=== PATIENT | female | born 1955 | race Caucasian/White ===

== ENCOUNTER → 2024-01-22 16:44 | Outpatient (REF) | payer OTHER, SELFPAY | LOC: WDC 16:44 | PROVIDERS: ATTENDING PHYSICIAN Family Medicine | DX: Z12.31 Encounter for screening mammogram for malignant neoplasm of breast (principal); Z12.39 Encounter for other screening for malignant neoplasm of breast | CPT/HCPCS: 77063; 77067 ==

== ENCOUNTER → 2025-01-25 15:17 | Outpatient (REF) | payer OTHER, SELFPAY | LOC: WDC 15:17 | PROVIDERS: ATTENDING PHYSICIAN Family Medicine | DX: Z12.31 Encounter for screening mammogram for malignant neoplasm of breast (principal) | CPT/HCPCS: 77063; 77067 ==

== ENCOUNTER 2025-05-20 17:19 | Emergency (ER) | payer OTHER, SELFPAY ==
[2025-05-20] VITALS (9 sets, daily range): BP systolic 135–188; BP diastolic 56–97; BMI 27.0
--- NOTE | 2025-05-20 19:23 | ED.GENMED ---
History of Present Illness
General
Chief Complaint: Dizziness
Source: patient and spouse
Time Seen by Provider: 05/20/25 18:59
History of Present Illness
History of Present Illness:
This patient is a 69-year-old female presents emergency department with report of just not feeling 'right' yesterday. She went to see her doctor had a UA performed which was preliminarily possibly consistent with UTI and she was started on
Macrobid. She has taken a total of 2 doses thus far. She does not believe she is ever taken this antibiotic in the past. Today, she notes she still feels just not right associated with slight nausea that she developed after lunch. She is hungry
now. She also notes episodes of feeling lightheaded, not described as a sense of spinning or movement. Then, close to her time of presentation here, she had a short-lived episode of bilateral facial numbness. This was not associated with change
in speech, change in vision, facial droop, focal weakness, headache, neck pain, or other complaints. Patient still feels lightheaded and just not right but cannot be more specific. She denies any further numbness, tingling. She denies focal
weakness, change in vision, headache, neck pain, chest pain, dyspnea, fever, chills, vomiting, vaginal bleeding or discharge. She denies urinary frequency hematuria, dysuria. She has chronic lower abdominal discomfort which is unchanged.
Past History
Past History
ED Past Medical History: GERD, NIDDM and Other (Hepatitis C)
ED Past Surgical History: Gynecological
Social History
Tobacco: Former smoker
Alcohol: Daily
Drug: None
Personal:
Living: with family
Employment: Retired
Phy Exam
Physical Exam
Physical Exam:
GENERAL: Alert , in no apparent distress
EYE: pupils equal and reactive
NECK: Supple, no significant adenopathy.
ENT: o/p clr, mmm.
CARDIAC: Regular rate and rhythm .
LUNGS: Clear breath sounds bilaterally, no acute respiratory distress, no wheezes/rales/rhonchi
ABDOMEN: Soft, without focal tenderness, no r/g, no cvat
NEUROLOGICAL: Alert and oriented, no focal neuro deficits, motor 5 out of 5, sensory intact, cranial nerves II through XII intact, [id number] normal
SKIN: Warm and dry, skin intact.
MUSCULOSKELETAL: No edema, well perfused.
PSYCH: Normal and appropriate interaction.
Course
Orders/Labs/Results
Orders:
Orders
05/20/25 17:23
EKG [Electrocardiogram (*1)] Urgent
Reason for Study: Vertigo / Dizzy
EKG- Treatment ONCE
05/20/25 19:22
0.9% Sodium Chloride 1000 ml [Nss] 1,000 ml IV BOLUS
05/20/25 19:35
Complete Blood Count/No Diff Urgent
Comprehensive Metabolic Panel Urgent
Troponin I Urgent
Urinalysis Reflex To Culture Urgent
Date Specimen was Collected: 05/20/25
Time Specimen was Collected: 19:27
Urine Microscopic Reflex Cult Urgent
Urine Culture Urgent
TRACIE Source: U
Specimen Description:
Date Specimen was Collected: 05/20/25
Time Specimen was Collected: 19:27
Abnormal Lab Results
05/20/25
19:35
Hgb 11.6 L g/dL
(12.0-16.0)
Hct 36.4 L %
(37.0-47.0)
MCV 69.5 L fL
(81.0-99.0)
MCH 22.1 L pg
(27.0-31.0)
MCHC 31.9 L g/dL
(33.0-37.0)
RDW 16.2 H %
(11.5-14.5)
Glucose 226 H mg/dl
(70-99)
Leukocyte Esterase Rfl 1+ A
(Negative)
Urine WBC (Reflex) 11-15 A /HPF
(0-5)
Urine Bacteria (Reflex) Many A
(Negative)
Urine Glucose 1+ A
(Negative)
05/20/25 19:35
05/20/25 19:35
Vital Signs
Initial and Last Documented VS:
Initial Vital Signs
Temp Pulse Resp Pulse Ox
98.7 F 94 18 99
05/20/25 17:21 05/20/25 17:21 05/20/25 17:21 05/20/25 17:21
Last Documented Vital Signs
Temp Pulse Resp BP Pulse Ox
98.2 F 70 17 135/65 94
05/20/25 18:48 05/20/25 20:45 05/20/25 20:45 05/20/25 20:30 05/20/25 20:45
*Pulse Oximetry
SaO2: 99
Oxygen Mode of Delivery: Room air
*Critical Care Note
Total Time (30-74mins, 75-104mins- exclusive of procedures): Not Applicable
Update Note
Update Note:
Patient presents to the Emergency Department with __lightheadedness, facial numbness, just not feeling right
Number and Complexity of Problems Addressed at the Encounter
� Chronic conditions affecting care:
� Acute Exacerbation and/or Progression of Chronic Illness:
� Differential Diagnosis includes: But not limited to electrolyte disorder, TIA, UTI, medication reaction, etc. etc.
Amount and/or Complexity of Data to be Reviewed and Analyzed
� I performed an independent evaluation of and my interpretation is:
EKG: Read by me, normal sinus rhythm, normal rate, normal axis, no acute ischemia
CT:
Xrays:
Laboratory Studies: Generally unremarkable discussed anemia and mild hyperglycemia with patient given copy of records
Other:
� Review of other/old records reveals: Reviewed discharge summary from most recent hospitalization 2016 patient diagnosed with E. coli bacteremia and UTI
� Clinical information was obtained by an independent historian: who is bedside
� Prescriptions/Medications Considered but not given:
� Further testing considered but not performed:
Risk of Complications and/or Morbidity or Mortality of Patient Management
� Social determinants of health affecting care:
� Discussion with other providers (PCP, Hospitalists, Consultants, etc):
� Escalation of care including admission/observation vs risk of discharge considered: 7:30 PM highly doubt patient symptoms consistent with acute neurological event such as TIA/CVA/bleed, etc. given completely normal neurological
exam here, bilateral short-lived vague facial numbness without associated symptoms, etc.
9:01 PM patient well-appearing, blood pressure now near normal, no complaints, neurological exam remains completely normal. Discussed with patient and plan of care� Given UA is equivocal, symptoms may or may not have been related to the new
antibiotic that she is taking, what we had shared decision making regarding whether to continue her Macrobid. They have decided to discontinue the Macrobid until the culture results are back which are expected tomorrow. She will follow-up with her
primary care doctor tomorrow morning. I closely described reasons that she should return to the emergency department immediately.
ED Attending Note
-
Portions of this chart may have been created with voice recognition software.� Occasional wrong word or��sound alike� substitutions may have occurred due to the inherent limitations of voice recognition software.
Discharge Plan
Departure
Patient Disposition: Home (Routine Discharge)
Date of Disposition: 05/20/25
Time of Disposition: 20:59
Patient with high blood pressure during this ER visit?: Yes
Condition: Good
Discharge Problem:
Dizziness
Instructions: Dizziness, BLOOD PRESSURE
Prescriptions:
No Action
glimepiride 1 MG tablet
1 mg PO BID
omeprazole 20 MG capsule,delayed release(DR/EC)
20 mg PO DAILY
metformin 500 MG tablet extended release 24 hr
2,000 mg PO DAILY
alprazolam 0.25 MG tablet
0.25 tab PO HSPRN PRN (Reason: sleep/anxiety)
lisinopril 10 mg Tablet
10 mg PO DAILY
rosuvastatin 10 mg Tablet
10 mg PO DAILY
Januvia 100 mg Tablet
100 mg PO DAILY
Referrals:
Julian Recinos MD [Family Provider, Family Practice] - Tomorrow
Activity Restrictions/Additional Instructions:
IF YOU DEVELOP NUMBNESS, TINGLING, WEAKNESS, CLUMSINESS, CHANGE IN VOICE, CHANGE IN VISION, DIFFICULTY WALKING, NAUSEA, VOMITING, CHEST PAIN, SHORTNESS OF BREATH, OR OTHER WORRISOME SIGNS, PLEASE RETURN TO THE ER IMMEDIATELY!
Interventions
Interventions:
*Risk Screen - Suicide Last Done: 05/20/25 18:44
*General Assessment Last Done: 05/20/25 18:44
*Neglect/Abuse Screening Last Done: 05/20/25 18:44
*ED- Fall Risk Assessment Last Done: 05/20/25 18:44
*ED COVID-19 Vaccine History Last Done: 05/20/25 18:44
ED- Neurological Assessment Last Done: 05/20/25 18:44
ED Swallowing Screen Last Done: 05/20/25 18:44
Discharge Date and Time
Print Language: MACEDONIAN
[2025-05-20] MEDS: NSS 1000 IV (19:32)
[2025-05-20 19:49] LABS: Hematocrit 36.4 % (37.0-47.0); Hemoglobin 11.6 g/dL (12.0-16.0); Mean Corp Hgb Conc. 31.9 g/dL (33.0-37.0); Mean Corpuscular Hgb 22.1 pg (27.0-31.0); Mean Corpuscular Volume 69.5 fL (81.0-99.0); Mean Platelet Volume 9.5 fL (7.4-10.4); Platelet Count 260 10^3/uL (130-400); Red Blood Cell Count 5.24 10^6/uL (4.20-5.40); Red Cell Dist. Width 16.2 % (11.5-14.5); White Blood Cell Count 5.5 10^3/uL (4.8-10.8)
[2025-05-20 19:52] LABS: Urine Albumin Negative (Neg - Trace); Urine Bilirubin Negative (Negative); Urine Character Clear (Clear); Urine Color Yellow; Urine Glucose 1+ (Negative); Urine Ketone Negative (Negative); Urine Leukocyte 1+ (Negative); Urine Nitrite Negative (Negative); Urine Occult Blood Negative (Negative); Urine Specific Gravity 1.015 (<1.030); Urine Urobilinogen Negative (Neg - 1+)
[2025-05-20 20:02] LABS: ALT (SGPT) 24 U/L (0-35); AST (SGOT) 20 U/L (14-36); Albumin 4.9 g/dl (3.5-5.0); Alkaline Phosphatase 51 U/L (38-126); Blood Urea Nitrogen 14 mg/dl (7-17); Carbon Dioxide 25 mmol/L (22-30); Chloride 103 mmol/L (98-107); Estimated Creatinine Clearance 67 ml/min; Glucose 226 mg/dl (70-99); Potassium 4.6 mmol/L (3.5-5.1); Sodium 138 mmol/L (135-145); Total Bilirubin 0.4 mg/dl (0.2-1.3); Total Protein 7.9 g/dl (6.3-8.2); eGFR > 60.00
[2025-05-20 20:04] LABS: Urine Red Blood Cell 0-2 /HPF (0-2)
[2025-05-20 20:05] LABS: Urine Bacteria Many (Negative)
[2025-05-20 20:13] LABS: Troponin I < 0.012 ng/ml
--- NOTE | 2025-05-20 21:09 | ED.GENMED ---
History of Present Illness
General
Chief Complaint: Dizziness
Time Seen by Provider: 05/20/25 18:59
Past History
Past History
ED Past Medical History: GERD, NIDDM and Other (Hepatitis C)
ED Past Surgical History: Gynecological
Social History
Tobacco: Former smoker
Alcohol: Daily
Drug: None
Personal:
Living: with family
Employment: Retired
Course
Orders/Labs/Results
Orders:
Orders
05/20/25 17:23
EKG [Electrocardiogram (*1)] Urgent
Reason for Study: Vertigo / Dizzy
EKG- Treatment ONCE
05/20/25 19:22
0.9% Sodium Chloride 1000 ml [Nss] 1,000 ml IV BOLUS
05/20/25 19:35
Complete Blood Count/No Diff Urgent
Comprehensive Metabolic Panel Urgent
Troponin I Urgent
Urinalysis Reflex To Culture Urgent
Date Specimen was Collected: 05/20/25
Time Specimen was Collected: 19:27
Urine Microscopic Reflex Cult Urgent
Urine Culture Urgent
TRACIE Source: U
Specimen Description:
Date Specimen was Collected: 05/20/25
Time Specimen was Collected: 19:27
Abnormal Lab Results
05/20/25
19:35
Hgb 11.6 L g/dL
(12.0-16.0)
Hct 36.4 L %
(37.0-47.0)
MCV 69.5 L fL
(81.0-99.0)
MCH 22.1 L pg
(27.0-31.0)
MCHC 31.9 L g/dL
(33.0-37.0)
RDW 16.2 H %
(11.5-14.5)
Glucose 226 H mg/dl
(70-99)
Leukocyte Esterase Rfl 1+ A
(Negative)
Urine WBC (Reflex) 11-15 A /HPF
(0-5)
Urine Bacteria (Reflex) Many A
(Negative)
Urine Glucose 1+ A
(Negative)
05/20/25 19:35
05/20/25 19:35
Vital Signs
Initial and Last Documented VS:
Initial Vital Signs
Temp Pulse Resp Pulse Ox
98.7 F 94 18 99
05/20/25 17:21 05/20/25 17:21 05/20/25 17:21 05/20/25 17:21
Last Documented Vital Signs
Temp Pulse Resp BP Pulse Ox
98.2 F 69 16 135/83 99
05/20/25 18:48 05/20/25 21:06 05/20/25 21:06 05/20/25 21:06 05/20/25 21:06
*Pulse Oximetry
SaO2: 99
Oxygen Mode of Delivery: Room air
ED Attending Note
-
Portions of this chart may have been created with voice recognition software.� Occasional wrong word or��sound alike� substitutions may have occurred due to the inherent limitations of voice recognition software.
Discharge Plan
Departure
Patient Disposition: Home (Routine Discharge)
Date of Disposition: 05/20/25
Time of Disposition: 20:59
Patient with high blood pressure during this ER visit?: Yes
Condition: Good
Discharge Problem:
Dizziness
Instructions: Dizziness, BLOOD PRESSURE
Prescriptions:
No Action
glimepiride 1 MG tablet
1 mg PO BID
omeprazole 20 MG capsule,delayed release(DR/EC)
20 mg PO DAILY
metformin 500 MG tablet extended release 24 hr
2,000 mg PO DAILY
alprazolam 0.25 MG tablet
0.25 tab PO HSPRN PRN (Reason: sleep/anxiety)
lisinopril 10 mg Tablet
10 mg PO DAILY
rosuvastatin 10 mg Tablet
10 mg PO DAILY
Januvia 100 mg Tablet
100 mg PO DAILY
Referrals:
Julian Recinos MD [Family Provider, [facility]] - Tomorrow
Activity Restrictions/Additional Instructions:
IF YOU DEVELOP NUMBNESS, TINGLING, WEAKNESS, CLUMSINESS, CHANGE IN VOICE, CHANGE IN VISION, DIFFICULTY WALKING, NAUSEA, VOMITING, CHEST PAIN, SHORTNESS OF BREATH, OR OTHER WORRISOME SIGNS, PLEASE RETURN TO THE ER IMMEDIATELY!
Interventions
Interventions:
*Risk Screen - Suicide Last Done: 05/20/25 18:44
*General Assessment Last Done: 05/20/25 18:44
*Neglect/Abuse Screening Last Done: 05/20/25 18:44
*ED- Fall Risk Assessment Last Done: 05/20/25 18:44
*ED COVID-19 Vaccine History Last Done: 05/20/25 18:44
*Nursing Disposition Last Done: 05/20/25 21:06
ED- Neurological Assessment Last Done: 05/20/25 18:44
ED Swallowing Screen Last Done: 05/20/25 18:44
Discharge Date and Time
Print Language: SAMI
== END 2025-05-20 21:16 | disposition home or self-care (01) ==
LOC: EMR 17:19
PROVIDERS: EMERGENCY PHYSICIAN Emergency Medicine; FAMILY PHYSICIAN Family Medicine
DX: R42 Dizziness and giddiness (principal); K21.9 Gastro-esophageal reflux disease without esophagitis; E11.9 Type 2 diabetes mellitus without complications; Z87.891 Personal history of nicotine dependence
CPT/HCPCS: 99283; 96360; 80053; 81003; 81015; 84484; 85027; 87086; 93005

== ENCOUNTER 2025-09-09 06:12 | Day surgery (SDC) | payer OTHER, SELFPAY ==
[2025-09-09 08:11] LABS: Glucose - Point of Care 180 mg/dl (70-99)
== END 2025-09-09 10:26 | disposition home or self-care (01) ==
LOC: GI 06:12
PROVIDERS: ATTENDING PHYSICIAN Specialist; FAMILY PHYSICIAN Family Medicine
DX: D50.9 Iron deficiency anemia, unspecified (principal); K31.7 Polyp of stomach and duodenum; K31.89 Other diseases of stomach and duodenum; D12.5 Benign neoplasm of sigmoid colon
CPT/HCPCS: 45380; 43239; 82962; 88305; 88342